=== PATIENT | female | born 1995 ===

== ENCOUNTER 2018-09-14 22:18 | Inpatient (IN) | payer BC, MEDICAID ==
[2018-09-14] MEDS ORDERED: Terbutaline 1 MG/ML SDV SUBCUT PRN (22:37)
[2018-09-14] MEDS ORDERED: Oxytocin/0.9 % Sodium Chloride 30 UNIT/500 ML BAG IV SCH ×2 (22:45→23:15)
[2018-09-14] MEDS ORDERED: Butorphanol 1 MG/ML SDV IVPUSH PRN (23:04)
[2018-09-14] MEDS ORDERED: Carboprost Tromethamine 250 MCG/1 ML Amp IM PRN (23:04)
[2018-09-14] MEDS ORDERED: Nalbuphine 10 MG/1 ML Vial IVPUSH PRN (23:04)
[2018-09-14] MEDS ORDERED: Misoprostol 200 MCG Tab PO PRN (23:04)
[2018-09-14] MEDS ORDERED: Sodium Chloride 0.9% 2.5 ML Syringe FLUSH PRN (23:04)
[2018-09-14] MEDS ORDERED: Sodium Chloride 0.9% 10 ML Syringe FLUSH PRN (23:04)
[2018-09-14] MEDS ORDERED: Methylergonovine 0.2 MG/1 ML Amp IM PRN (23:04)
[2018-09-14] MEDS ORDERED: Ondansetron 4 MG/2 ML SDV IV PRN (23:04)
[2018-09-14] MEDS ORDERED: Tranexamic Acid 1,000 MG in Sodium Chloride 0.9% 100 ML IV PRN (23:04)
[2018-09-14] MEDS ORDERED: Water For Irrigation,Sterile 1,000 ML Container IRR PRN (23:04)
[2018-09-14] MEDS ORDERED: Sodium Chloride 0.9% 10 ML SDV IV PRN (23:04)
[2018-09-14] MEDS ORDERED: Lidocaine 1% 50 ML MDV INJECT PRN (23:04)
[2018-09-14] MEDS: Lactated Ringers 1,000 ML IV SCH (23:59)
[2018-09-15] MEDS: Lactated Ringers 1,000 ML IV SCH ×3 (07:11→09:51)
[2018-09-15] MEDS ORDERED: Bupivacaine 0.25% 10 ML SDV ONE (08:05)
[2018-09-15] MEDS ORDERED: Lidocaine HCl/EPINEPHrine 5 ML IJ ONE (08:05)
[2018-09-15] MEDS ORDERED: fentaNYL 100 MCG/2 ML SDV ONE (08:05)
--- NOTE | 2018-09-15 08:34 | PCM.LDHP ---
L&D History of Present Illness - General Date of Service: 09/15/18 Admit Problem/Dx: Patient Status Order with Admit Dx/Problem 09/14/18 23:04 Patient Status [ADT] Routine Admission Diagnosis/Problem Admission Diagnosis/Problem Source of Information: Patient History Limitations: Reports: No Limitations - History of Present Illness Improves with: Reports: None Worsens with: Reports: None Associated Symptoms: Reports: N - Related Data Allergies/Adverse Reactions: Allergies Allergy/AdvReac Type Severity Reaction Status Date / Time Penicillins Allergy Rash Verified 09/14/18 22:34 Past Medical History Cardiovascular History: Reports: 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: - Past Surgical History HEENT Surgical History: Reports: Adenoidectomy, Tonsillectomy Cardiovascular Surgical History: Reports: None GI Surgical History: Reports: Cholecystectomy Social & Family History - Family History Family Medical History: Noncontributory - Tobacco Use Smoking Status *Q: Never Smoker Second Hand Smoke Exposure: No - Caffeine Use Caffeine Use: Reports: Coffee, Soda, Tea - Recreational Drug Use Recreational Drug Use: No H&P Review of Systems - Review of Systems: Review Of Systems: See Below General: Reports: No Symptoms HEENT: Reports: No Symptoms Pulmonary: Reports: No Symptoms Cardiovascular: Reports: No Symptoms Gastrointestinal: Reports: No Symptoms Genitourinary: Reports: No Symptoms Musculoskeletal: Reports: No Symptoms Skin: Reports: No Symptoms Psychiatric: Reports: No Symptoms Neurological: Reports: No Symptoms Hematologic/Lymphatic: Reports: No Symptoms Immunologic: Reports: No Symptoms L&D Exam - Exam Exam: See Below - Vital Signs Weight: 76.204 kg - OB Specific Fundal Height In cm: 37 Contraction Intensity: Moderate Movement: Active Heart Tones: Present Presentation: Vertex - Anguiano Score Anguiano Score Cervix Position: Anterior Anguiano Score Consistency: Soft Anguiano Score Effacement: >80% Anguiano Score Dilation: > 5 cm Anguiano Score Infant's Station: -2 Anguiano Score Total: 11 - Exam General: Alert, Oriented HEENT: PERRLA, Conjunctiva Clear, EACs Clear, EOMI, Hearing Intact, Mucosa Moist & [place], Nares Patent, Normal Nasal Septum, Posterior Pharynx Clear, TMs Clear Neck: Supple, Trachea Midline Lungs: Clear to Auscultation, Normal Respiratory Effort Cardiovascular: Regular Rate, Regular Rhythm GI/Abdominal Exam: Normal Bowel Sounds, Soft, Non-Tender, No Organomegaly, No Distention, No Abnormal Bruit, No Mass, Pelvis Stable Rectal Exam: Normal Exam, Normal Rectal Tone Genitourinary: Normal external exam, Normal bimanual exam, Normal speculum exam Back Exam: Normal Inspection, Full Range of Motion Extremities: Normal Inspection, Normal Range of Motion, Non-Tender, No Pedal Edema, Normal Capillary Refill Skin: Warm, Dry, Intact Neurological: Cranial Nerves Intact, Reflexes Equal Bilateral Psychiatric: Alert, Normal Affect, Normal Mood - Patient Data Lab Results Last 24 hrs: Laboratory Results - last 24 hr 09/14/18 09/14/18 Range/Units 23:26 23:26 WBC 8.27 (4.0-11.0) K/uL RBC 4.13 L (4.30-5.90) M/uL Hgb 11.8 L (12.0-16.0) g/dL Hct 35.9 L (36.0-46.0) % MCV 86.9 (80.0-98.0) fL MCH 28.6 (27.0-32.0) pg MCHC 32.9 (31.0-37.0) g/dL RDW Std Deviation 43.2 (28.0-62.0) fl RDW Coeff of Abi 14 (11.0-15.0) % Plt Count 260 (150-400) K/uL MPV 11.10 (7.40-12.00) fL Nucleated RBC % 0.0 /100WBC Nucleated RBCs # 0 K/uL Blood Type A NEGATIVE Antibody Screen NEGATIVE Result Diagrams: 09/14/18 23:26 Problem List Initiated/Reviewed/Updated: Yes Orders Last 24hrs: Active Orders 24 hr Category Date Time Status Patient Status [ADT] Routine ADT 09/14/18 23:04 Active Bedrest Bathroom Privileges [RC] ASDIRECTED Care 09/14/18 22:37 Active Communication Order [RC] ASDIRECTED Care 09/14/18 22:37 Active Communication Order [RC] ASDIRECTED Care 09/14/18 22:37 Active Communication Order [RC] ASDIRECTED Care 09/14/18 22:37 Active Heart Tones [RC] CONTINUOUS Care 09/14/18 23:04 Active Non Stress Test [RC] PER UNIT ROUTINE Care 09/14/18 23:04 Active May Shower [RC] ASDIRECTED Care 09/14/18 23:04 Active Notify Provider [RC] PRN Care 09/14/18 22:37 Active Notify Provider [RC] PRN Care 09/14/18 22:37 Active Notify Provider [RC] PRN Care 09/14/18 23:04 Active Notify Provider [RC] STAT Care 09/14/18 22:37 Active Oxygen Therapy [RC] ASDIRECTED Care 09/14/18 22:37 Active Up ad Gina [RC] ASDIRECTED Care 09/14/18 23:04 Active Vaginal Exam [RC] PRN Care 09/14/18 22:37 Active Vaginal Exam [RC] PRN Care 09/14/18 23:04 Active Vital Signs [RC] PER UNIT ROUTINE Care 09/14/18 22:37 Active Vital Signs [RC] PER UNIT ROUTINE Care 09/14/18 23:04 Active Butorphanol [Stadol] Med 09/14/18 23:04 Active 1 mg IVPUSH Q1H PRN Carboprost Tromethamine [Hemabate DS] Med 09/14/18 23:04 Active 250 mcg IM ASDIRECTED PRN Lactated Ringers [Ringers, Lactated] 1,000 ml Med 09/14/18 23:15 Active IV ASDIRECTED Lidocaine 1% [Xylocaine 1%] Med 09/14/18 23:04 Active 50 ml INJECT ONETIME PRN Methylergonovine [Methergine] Med 09/14/18 23:04 Active 0.2 mg IM ASDIRECTED PRN Nalbuphine [Nubain] Med 09/14/18 23:04 Active 10 mg IVPUSH Q1H PRN Ondansetron [Zofran] Med 09/14/18 23:04 Active 4 mg IV Q4H PRN Oxytocin/0.9 % Sodium Chloride [Oxytocin 30 Unit/500 ML Med 09/14/18 22:45 Active -NS] 30 unit in 500 ml IV TITRATE Oxytocin/0.9 % Sodium Chloride [Oxytocin 30 Unit/500 ML Med 09/14/18 23:15 Active -NS] 30 unit in 500 ml IV TITRATE Sodium Chloride 0.9% [Normal Saline] Med 09/14/18 23:04 Active 10 ml IV ASDIRECTED PRN Sodium Chloride 0.9% [Saline Flush] Med 09/14/18 23:04 Active 10 ml FLUSH ASDIRECTED PRN Sodium Chloride 0.9% [Saline Flush] Med 09/14/18 23:04 Active 2.5 ml FLUSH ASDIRECTED PRN Terbutaline [Brethine] Med 09/14/18 22:37 Active 0.25 mg SUBCUT ASDIRECTED PRN Tranexamic Acid [Cyklokapron] 1,000 mg Med 09/14/18 23:04 Active Sodium Chloride 0.9% [Normal Saline] 100 ml IV ONETIME Water For Irrigation,Sterile [Sterile Water for Med 09/14/18 23:04 Active Irrigation] 1,000 ml IRR ASDIRECTED PRN miSOPROStol [Cytotec] Med 09/14/18 23:04 Active 200 mcg PO ONETIME PRN Scalp Electrode [WOMSER] Per Unit Routine Oth 09/14/18 23:04 Ordered Medication Administration Instruction [OM.PC] Q3H Oth 09/14/18 22:45 Ordered Peripheral IV Insertion Adult [OM.PC] Routine Oth 09/14/18 23:04 Ordered Resuscitation Status Routine Resus Stat 09/14/18 23:04 Ordered Medication Orders Butorphanol Tartrate (Stadol) 1 mg IVPUSH Q1H PRN PRN Reason: Pain Carboprost Tromethamine (Hemabate Ds) 250 mcg IM ASDIRECTED PRN PRN Reason: Post Hemorrhage Oxytocin/Sodium Chloride (Oxytocin 30 Unit/500 Ml-Ns) 30 unit in 500 mls @ 2 mls/hr IV TITRATE DENNY; Protocol Last Titration: 09/15/18 06:24 Dose: 14 munits/min, 14 mls/hr Titration: 09/15/18 05:27 Dose: 12 munits/min, 12 mls/hr Titration: 09/15/18 04:40 Dose: 10 munits/min, 10 mls/hr Titration: 09/15/18 03:11 Dose: 8 munits/min, 8 mls/hr Titration: 09/15/18 02:08 Dose: 6 munits/min, 6 mls/hr Titration: 09/15/18 01:15 Dose: 4 munits/min, 4 mls/hr Admin: 09/15/18 00:39 Dose: 2 munits/min, 2 mls/hr Lactated Ringer's (Ringers, Lactated) 1,000 mls @ 150 mls/hr IV ASDIRECTED [facility] Last Admin: 09/15/18 07:11 Dose: 150 mls/hr Infusion: 09/15/18 06:40 Dose: 150 mls/hr Admin: 09/14/18 23:59 Dose: 150 mls/hr Oxytocin/Sodium Chloride (Oxytocin 30 Unit/500 Ml-Ns) 30 unit in 500 mls @ 999 mls/hr IV TITRATE [facility] Tranexamic Acid 1,000 mg/ (Sodium Chloride) 110 mls @ 660 mls/hr IV ONETIME PRN PRN Reason: Bleeding Lidocaine HCl (Xylocaine 1%) 50 ml INJECT ONETIME PRN PRN Reason: Laceration repair Methylergonovine Maleate (Methergine) 0.2 mg IM ASDIRECTED PRN PRN Reason: Post Hemorrhage Misoprostol (Cytotec) 200 mcg PO ONETIME PRN PRN Reason: Post Hemorrhage Nalbuphine HCl (Nubain) 10 mg IVPUSH Q1H PRN PRN Reason: Pain (severe 7-10) Ondansetron HCl (Zofran) 4 mg IV Q4H PRN PRN Reason: Nausea/Vomiting Sodium Chloride (Saline Flush) 10 ml FLUSH ASDIRECTED PRN PRN Reason: Keep Vein Open Sodium Chloride (Saline Flush) 2.5 ml FLUSH ASDIRECTED PRN PRN Reason: Keep Vein Open Sodium Chloride (Normal Saline) 10 ml IV ASDIRECTED PRN PRN Reason: IV Use Sterile Water (Sterile Water For Irrigation) 1,000 ml IRR ASDIRECTED PRN PRN Reason: delivery Terbutaline Sulfate (Brethine) 0.25 mg SUBCUT ASDIRECTED PRN PRN Reason: Tacysystole
--- NOTE | 2018-09-15 08:54 | PCM.PREANE ---
Preanesthetic Assessment - Procedure Proposed Procedure: HAYLIE - Anesthesia/Transfusion/Family Hx Anesthesia History: Prior Anesthesia Without Reaction Family History of Anesthesia Reaction: No Transfusion History: No Prior Transfusion(s) - Review of Systems General: No Symptoms Pulmonary: No Symptoms Cardiovascular: No Symptoms Gastrointestinal: No Symptoms Neurological: No Symptoms ("bad hips" according to patient) Other: Reports: None - Physical Assessment Height: 5 ft Weight: 76.204 kg ASA Class: 2 Mental Status: Alert & Oriented x3 Airway Class: Mallampati = 1 Dentition: Reports: Normal Dentition ROM/Head Extension: Full Lungs: Clear to Auscultation, Normal Respiratory Effort Cardiovascular: Regular Rate, Regular Rhythm - Lab Values: Laboratory Last Values WBC 8.27 K/uL (4.0-11.0) 09/14/18 23: RBC 4.13 M/uL (4.30-5.90) L 09/14/18 23: Hgb 11.8 g/dL (12.0-16.0) L 09/14/18 23: Hct 35.9 % (36.0-46.0) L 09/14/18 23: MCV 86.9 fL (80.0-98.0) 09/14/18 23: MCH 28.6 pg (27.0-32.0) 09/14/18 23: MCHC 32.9 g/dL (31.0-37.0) 09/14/18 23:26 RDW Std Deviation 43.2 fl (28.0-62.0) 09/14/18 23: RDW Coeff of Abi 14 % (11.0-15.0) 09/14/18 23: Plt Count 260 K/uL (150-400) 09/14/18 23: MPV 11.10 fL (7.40-12.00) 09/14/18 23: Nucleated RBC % 0.0 /100WBC 09/14/18 23: Nucleated RBCs # 0 K/uL 09/14/18 23:26 Blood Type A NEGATIVE 09/14/18 23: Antibody Screen NEGATIVE 09/14/18 23:26 - Allergies Allergies/Adverse Reactions: Allergies Allergy/AdvReac Type Severity Reaction Status Date / Time Penicillins Allergy Rash Verified 09/14/18 22:34 - Blood Blood Available: No Product(s) Available: None - Anesthesia Plan Pre-Op Medication Ordered: None - Acknowledgements Anesthesia Type Planned: Epidural Pt an Appropriate Candidate for the Planned Anesthesia: Yes Alternatives and Risks of Anesthesia Discussed w Pt/Guardian: Yes Pt/Guardian Understands and Agrees with Anesthesia Plan: Yes PreAnesthesia Questionnaire Cardiovascular History: Reports: Heart Murmur [place] MOLD History: Reports: - Past Surgical History HEENT Surgical History: Reports: Adenoidectomy, Tonsillectomy Cardiovascular Surgical History: Reports: None GI Surgical History: Reports: Cholecystectomy - SUBSTANCE USE Smoking Status *Q: Never Smoker Second Hand Smoke Exposure: No Recreational Drug Use History: No - CURRENT (IN HOUSE) MEDS Current Meds: Current Medications Butorphanol Tartrate (Stadol) 1 mg IVPUSH Q1H PRN PRN Reason: Pain Carboprost Tromethamine (Hemabate Ds) 250 mcg IM ASDIRECTED PRN PRN Reason: Post Hemorrhage Oxytocin/Sodium Chloride (Oxytocin 30 Unit/500 Ml-Ns) 30 unit in 500 mls @ 2 mls/hr IV TITRATE [place]NY; Protocol Last Titration: 09/15/18 06:24 Dose: 14 munits/min, 14 mls/hr Lactated Ringer's (Ringers, Lactated) 1,000 mls @ 150 mls/hr IV ASDIRECTED [place] Last Admin: 09/15/18 07:11 Dose: 150 mls/hr Oxytocin/Sodium Chloride (Oxytocin 30 Unit/500 Ml-Ns) 30 unit in 500 mls @ 999 mls/hr IV TITRATE [place] Tranexamic Acid 1,000 mg/ (Sodium Chloride) 110 mls @ 660 mls/hr IV ONETIME PRN PRN Reason: Bleeding Lidocaine HCl (Xylocaine 1%) 50 ml INJECT ONETIME PRN PRN Reason: Laceration repair Methylergonovine Maleate (Methergine) 0.2 mg IM ASDIRECTED PRN PRN Reason: Post Hemorrhage Misoprostol (Cytotec) 200 mcg PO ONETIME PRN PRN Reason: Post Hemorrhage Nalbuphine HCl (Nubain) 10 mg IVPUSH Q1H PRN PRN Reason: Pain (severe 7-10) Ondansetron HCl (Zofran) 4 mg IV Q4H PRN PRN Reason: Nausea/Vomiting Sodium Chloride (Saline Flush) 10 ml FLUSH ASDIRECTED PRN PRN Reason: Keep Vein Open Sodium Chloride (Saline Flush) 2.5 ml FLUSH ASDIRECTED PRN PRN Reason: Keep Vein Open Sodium Chloride (Normal Saline) 10 ml IV ASDIRECTED PRN PRN Reason: IV Use Sterile Water (Sterile Water For Irrigation) 1,000 ml IRR ASDIRECTED PRN PRN Reason: delivery Terbutaline Sulfate (Brethine) 0.25 mg SUBCUT ASDIRECTED PRN PRN Reason: Tacysystole Discontinued Medications Bupivacaine HCl (Sensorcaine-Mpf 0.25%) Confirm Administered Dose 10 ml .ROUTE .STK-MED ONE Stop: 09/15/18 08:06 Fentanyl (Sublimaze) Confirm Administered Dose 100 mcg .ROUTE .STK-MED ONE Stop: 09/15/18 08:06 Fentanyl/Bupivacaine HCl (Ifaxadem-Eqgoz-Gn 2 Mcg/Ml-0.125%) Confirm Administered Dose 100 mls @ as directed .ROUTE .STK-MED ONE Stop: 09/15/18 08:06 Lidocaine/Epinephrine (Lidocaine 1.5%-Epi 1:200,000) Confirm Administered Dose 5 ml IJ .STK-MED ONE Stop: 09/15/18 08:06
[2018-09-15] MEDS ORDERED: Bupivacaine 0.5% 10 ML SDV ONE (11:50)
[2018-09-15] MEDS ORDERED: Docusate Sodium 100 MG Cap PO PRN (12:32)
[2018-09-15] MEDS ORDERED: Benzocaine/Menthol 20%-0.5% Spray 78 GM Cannister TOP PRN (12:32)
[2018-09-15] MEDS ORDERED: Ibuprofen 400 MG Tab PO PRN (12:32)
[2018-09-15] MEDS ORDERED: Lanolin 100% Cream 7 GM Tube TOP PRN (12:32)
[2018-09-15] MEDS ORDERED: oxyCODONE 5 MG Tab PO PRN (12:32)
[2018-09-15] MEDS ORDERED: Witch Hazel Medicated Pads 40/Jar TOP PRN (12:32)
[2018-09-15] MEDS ORDERED: Acetaminophen 500 MG Tab PO PRN (12:32)
[2018-09-15] MEDS ORDERED: Bisacodyl 10 MG Supp RECTAL PRN (12:32)
--- NOTE | 2018-09-15 14:18 | OR ---
SURGEON: Hardy Acevedo MD DATE OF PROCEDURE: DELIVERY NOTE: Ms. Velez is a 23-year-old patient. She is para 4-0-0-4. She is followed in our clinic primarily by our nurse senior rd engineer. She had uncomplicated care. Her GBS status is negative. She is admitted for elective induction. She was induced with Pitocin. She responded to that very well. At the time of admission, she was 5 cm, 60 vertex, and -3. She had epidural anesthesia for labor analgesia and then she had an artificial rupture of the membrane by me about 10 o'clock with clear fluid. The patient continued to progress without any problem. She was able to accomplish normal spontaneous vaginal delivery of a male fetus, cried immediately. score reported to be 8 and 9. The placenta delivered spontaneous, complete, and intact, and there was no need for episiotomy. There was no perineal or labial laceration. Estimated blood loss is 300 to 350 mL. heart rate was category 1 through the entire process of labor. There was no complication in the labor and delivery process. MARIE / ROSEANNA /[id number]
[2018-09-15] MEDS: Acetaminophen 500 MG Tab PO PRN (19:16)
[2018-09-15] MEDS: Ibuprofen 800 MG Tab PO PRN (20:25)
[2018-09-16] MEDS: Acetaminophen 500 MG Tab PO PRN ×2 (00:03→08:04)
--- NOTE | 2018-09-16 07:42 | PCM.POSTAN ---
POST ANESTHESIA ASSESSMENT - MENTAL STATUS Mental Status: Alert - RESPIRATORY Respiratory Status: Respiratory Rate WNL - CARDIOVASCULAR CV Status: Pulse Rate WNL - GASTROINTESTINAL GI Status: No Symptoms - POST OP HYDRATION Hydration Status: Adequate & Stable
--- NOTE | 2018-09-16 07:43 | PCM48HPAN ---
Post Anesthesia Note - EVALUATION WITHIN 48HRS OF ANESTHETIC Vital Signs in Normal Range: Yes Patient Participated in Evaluation: Yes Respiratory Function Stable: Yes Airway Patent: Yes Cardiovascular Function Stable: Yes Hydration Status Stable: Yes Pain Control Satisfactory: Yes Nausea and Vomiting Control Satisfactory: Yes Mental Status Recovered: Yes Resp Rate: 16
--- NOTE | 2018-09-16 12:05 | PCM.PNPP ---
- General Info Date of Service: 09/16/18 Functional Status: Reports: Pain Controlled - Review of Systems General: Reports: No Symptoms HEENT: Reports: No Symptoms Pulmonary: Reports: No Symptoms Cardiovascular: Reports: No Symptoms Gastrointestinal: Reports: No Symptoms Genitourinary: Reports: No Symptoms Musculoskeletal: Reports: No Symptoms Skin: Reports: No Symptoms Neurological: Reports: No Symptoms Psychiatric: Reports: No Symptoms - General Info Date of Service: 09/16/18 - Patient Data Vital Signs - Most Recent: Last Vital Signs Temp 36.2 C 09/16/18 07:08 Pulse 74 09/16/18 07:08 Resp 16 09/16/18 07:42 BP 112/73 09/16/18 07:08 Pulse Ox 99 09/16/18 07:08 Weight - Most Recent: 76.204 kg Lab Results - Last 24 Hours: Laboratory Results - last 24 hr 09/16/18 Range/Units 05:37 Hgb 10.4 L (12.0-16.0) g/dL Hct 31.5 L (36.0-46.0) % Med Orders - Current: Current Medications Acetaminophen (Tylenol Extra Strength) 500 mg PO Q4H PRN PRN Reason: Pain Acetaminophen (Tylenol Extra Strength) 1,000 mg PO Q4H PRN PRN Reason: Pain Last Admin: 09/16/18 08:04 Dose: 1,000 mg Benzocaine/Menthol (Dermoplast Pain Relief 20%-0.5% [place]) 78 gm TOP ASDIRECTED PRN PRN Reason: Perineal Comfort Measure Last Admin: 09/15/18 15:16 Dose: 1 can Bisacodyl (Dulcolax) 10 mg RECTAL ONETIME PRN PRN Reason: Constipation Butorphanol Tartrate (Stadol) 1 mg IVPUSH Q1H PRN PRN Reason: Pain Carboprost Tromethamine (Hemabate Ds) 250 mcg IM ASDIRECTED PRN PRN Reason: Post Hemorrhage Docusate Sodium (Colace) 100 mg PO BID PRN PRN Reason: Constipation Last Admin: 09/16/18 08:02 Dose: 100 mg Emollient Ointment (Lansinoh Hpa) 0 gm TOP ASDIRECTED PRN PRN Reason: Sore Nipples Oxytocin/Sodium Chloride (Oxytocin 30 Unit/500 Ml-Ns) 30 unit in 500 mls @ 2 mls/hr IV TITRATE DENNY; Protocol Last Titration: 09/15/18 06:24 Dose: 14 munits/min, 14 mls/hr Lactated Ringer's (Ringers, Lactated) 1,000 mls @ 150 mls/hr IV ASDIRECTED [place]NY Last Admin: 09/15/18 09:51 Dose: 150 mls/hr Oxytocin/Sodium Chloride (Oxytocin 30 Unit/500 Ml-Ns) 30 unit in 500 mls @ 999 mls/hr IV TITRATE [place]NY Tranexamic Acid 1,000 mg/ (Sodium Chloride) 110 mls @ 660 mls/hr IV ONETIME PRN PRN Reason: Bleeding Ibuprofen (Motrin) 400 mg PO Q4H PRN PRN Reason: Pain Ibuprofen (Motrin) 800 mg PO Q6H PRN PRN Reason: Pain Last Admin: 09/15/18 20:25 Dose: 800 mg Lidocaine HCl (Xylocaine 1%) 50 ml INJECT ONETIME PRN PRN Reason: Laceration repair Methylergonovine Maleate (Methergine) 0.2 mg IM ASDIRECTED PRN PRN Reason: Post Hemorrhage Misoprostol (Cytotec) 200 mcg PO ONETIME PRN PRN Reason: Post Hemorrhage Nalbuphine HCl (Nubain) 10 mg IVPUSH Q1H PRN PRN Reason: Pain (severe 7-10) Ondansetron HCl (Zofran) 4 mg IV Q4H PRN PRN Reason: Nausea/Vomiting Oxycodone HCl (Oxycodone) 5 mg PO Q2H PRN PRN Reason: Pain Sodium Chloride (Saline Flush) 10 ml FLUSH ASDIRECTED PRN PRN Reason: Keep Vein Open Sodium Chloride (Saline Flush) 2.5 ml FLUSH ASDIRECTED PRN PRN Reason: Keep Vein Open Sodium Chloride (Normal Saline) 10 ml IV ASDIRECTED PRN PRN Reason: IV Use Sterile Water (Sterile Water For Irrigation) 1,000 ml IRR ASDIRECTED PRN PRN Reason: delivery Terbutaline Sulfate (Brethine) 0.25 mg SUBCUT ASDIRECTED PRN PRN Reason: Tacysystole [place] (Tucks) 1 pad TOP ASDIRECTED PRN PRN Reason: comfort care Last Admin: 09/15/18 15:16 Dose: 1 tub Discontinued Medications Bupivacaine HCl (Sensorcaine-Mpf 0.25%) Confirm Administered Dose 10 ml .ROUTE .STK-MED ONE Stop: 09/15/18 08:06 Last Admin: 09/15/18 21:04 Dose: Not Given Bupivacaine HCl (Sensorcaine-Mpf 0.5%) Confirm Administered Dose 10 ml .ROUTE .STK-MED ONE Stop: 09/15/18 11:51 Last Admin: 09/15/18 21:05 Dose: Not Given Fentanyl (Sublimaze) Confirm Administered Dose 100 mcg .ROUTE .STK-MED ONE Stop: 09/15/18 08:06 Last Admin: 09/15/18 21:04 Dose: Not Given Fentanyl/Bupivacaine HCl (Itiatbkm-Bylla-Om 2 Mcg/Ml-0.125%) Confirm Administered Dose 100 mls @ as directed .ROUTE .STK-MED ONE Stop: 09/15/18 08:06 Last Admin: 09/15/18 21:04 Dose: Not Given Lidocaine/Epinephrine (Lidocaine 1.5%-Epi 1:200,000) Confirm Administered Dose 5 ml IJ .STK-MED ONE Stop: 09/15/18 08:06 Last Admin: 09/15/18 21:04 Dose: Not Given - Infant Interaction Disposition, : [place] in Room with Family Infant Interaction: Holding Feeding: Attempted ; Nursed Fair/Poor Support Person: - Recovery Exam Fundal Tone: Firm Fundal Level: 1 Fingerbreadths Below Umbilicus Fundal Placement: Midline Lochia Amount: None Lochia Color: Rubra/Red Perineum Description: Intact, Minimal Bruising/Swelling Episiotomy/Laceration: None Bladder Status: Voiding Urinary Elimination: Voided - Exam General: Alert, Oriented HEENT: Pupils Equal Neck: Supple Lungs: Clear to Auscultation, Normal Respiratory Effort Cardiovascular: Regular Rate, Regular Rhythm GI/Abdominal Exam: Normal Bowel Sounds, Soft, Non-Tender, No Organomegaly, No Distention, No Abnormal Bruit, No Mass, Pelvis Stable Extremities: Normal Inspection, Normal Range of Motion, Non-Tender, No Pedal Edema, Normal Capillary Refill Skin: Warm, Dry, Intact Wound/Incisions: Healing Well Neurological: No New Focal Deficit Psy/Mental Status: Alert, Normal Affect, Normal Mood - Problem List Review Problem List Initiated/Reviewed/Updated: Yes - My Orders Last 24 Hours: My Active Orders 09/15/18 12:32 Patient Status [ADT] Routine May Shower [RC] ASDIRECTED Up ad Gina [RC] ASDIRECTED Vital Signs [RC] PER UNIT ROUTINE Acetaminophen [Tylenol Extra Strength] 1,000 mg PO Q4H PRN Acetaminophen [Tylenol Extra Strength] 500 mg PO Q4H PRN Benzocaine/Menthol [Dermoplast Pain Relief 20%-0.5% Weidman] 78 gm TOP ASDIRECTED PRN Bisacodyl [Dulcolax] 10 mg RECTAL ONETIME PRN Docusate Sodium [Colace] 100 mg PO BID PRN Ibuprofen [Motrin] 400 mg PO Q4H PRN Ibuprofen [Motrin] 800 mg PO Q6H PRN Lanolin [Lansinoh HPA] See Dose Instructions TOP ASDIRECTED PRN [place] [Tucks] 1 pad TOP ASDIRECTED PRN oxyCODONE 5 mg PO Q2H PRN Assess Lochia [WOMSER] Per Unit Routine Assess Uterine Involution [WOMSER] Per Unit Routine Peripheral IV Discontinue [OM.PC] Routine 09/15/18 Dinner Regular Diet [DIET] - Assessment Assessment:: S/P doing well - Plan Plan:: Send home today.
[2018-09-16] MEDS: Ibuprofen 800 MG Tab PO PRN (13:58)
== END 2018-09-16 18:58 | disposition home or self-care (01) | DRG 807 ==
LOC: MW.OBCHECK 22:18 → MW.OB 22:19 → MW.OBCHECK 23:12 → OBSVTOIN 09-15 12:26 → MW.OB 09-15 16:05
PROVIDERS: ADMIT Obstetrics & Gynecology; ATTEND Obstetrics & Gynecology
PROC: 10E0XZZ Delivery of Products of Conception, External Approach (ICD-10-PCS; principal; 2018-09-15)
PROC: 3E033VJ Introduction of Other Hormone into Peripheral Vein, Percutaneous Approach (ICD-10-PCS; 2018-09-15)
PROC: 10907ZC Drainage of Amniotic Fluid, Therapeutic from Products of Conception, Via Natural or Artificial Opening (ICD-10-PCS; 2018-09-15)
DX: O48.0 Post-term pregnancy (principal); Z3A.40 40 weeks gestation of pregnancy; Z37.0 Single live birth
CPT/HCPCS: 36415; 51702; 59025; 59409; 85014; 85018; 85027; 86850; 86900; 86901; A9270-GY; J2590; J7120